=== PATIENT | female | born 1935 | race Caucasian/White ===

== ENCOUNTER 2016-07-06 12:39 | Inpatient (IN) | payer MEDICARE, OTHER ==
[~2016-07-06] VITALS: Ht 165.1 cm; Wt 65.0 kg
[2016-07-06 12:58] VITALS: BP 155/119; PULSE 63; TEMP 97.8
[2016-07-06 17:37] VITALS: BP 152/70; PULSE 77; TEMP 98
[2016-07-06] MEDS ORDERED: ASPIRIN 81M81 MG/TA2 PO (18:24)
[2016-07-06] MEDS ORDERED: LIPITOR 40MG TA40 MG PO (18:27)
[2016-07-06] MEDS ORDERED: COREG 6.256.25 MG/TA PO (18:29)
[2016-07-06] MEDS ORDERED: CELEBREX 200MG200 MG PO (18:30)
[2016-07-06] MEDS ORDERED: HYGROTON 2525 MG/TAB PO (18:31)
[2016-07-06] MEDS ORDERED: KLONOPIN WAFER0.5 MG PO (18:32)
[2016-07-06] MEDS ORDERED: PLAVIX 75MG TAB75 MG PO (18:32)
[2016-07-06] MEDS ORDERED: PRINIVIL20 MG PO (18:33)
[2016-07-06] MEDS ORDERED: PRIL40 PO (18:34)
[2016-07-07 03:50] VITALS: BP 129/74; PULSE 62; TEMP 97.6
[2016-07-07 15:49] VITALS: BP 104/60; PULSE 66; TEMP 98.6
[2016-07-08 04:50] VITALS: BP 130/67; PULSE 70; TEMP 97.7
[2016-07-08 17:37] VITALS: BP 99/52; PULSE 66; TEMP 98.5
[2016-07-09 04:43] VITALS: BP 127/53; PULSE 71; TEMP 97.6
[2016-07-09 18:03] VITALS: BP 125/60; PULSE 66; TEMP 98.1
[2016-07-10 04:10] VITALS: BP 146/88; PULSE 88; TEMP 98.5
[2016-07-10 07:10] VITALS: BP 122/66; PULSE 64
[2016-07-10 16:31] VITALS: BP 142/86; PULSE 65; TEMP 99
[2016-07-11 05:07] VITALS: BP 106/51; PULSE 69; TEMP 98.4
[2016-07-11 17:02] VITALS: BP 145/61; PULSE 73; TEMP 98.4
[2016-07-11 17:15] VITALS: BP 145/61; PULSE 68
[2016-07-12 03:27] VITALS: BP 132/60; PULSE 61; TEMP 98.3
[2016-07-12 16:30] VITALS: BP 97/58; PULSE 63; TEMP 99.1
[2016-07-13 04:32] VITALS: BP 129/66; PULSE 63; TEMP 98.3
[2016-07-13 17:51] VITALS: BP 103/51; PULSE 67; TEMP 99.1
[2016-07-14 04:17] VITALS: BP 102/52; PULSE 65; TEMP 98.3
[2016-07-14 16:51] VITALS: BP 111/58; PULSE 68; TEMP 98.7
[2016-07-14 23:30] VITALS: BP 130/60
[2016-07-15 04:33] VITALS: BP 127/46; PULSE 63; TEMP 97.8
[2016-07-15 16:20] VITALS: BP 150/101; PULSE 72; TEMP 98.1
[2016-07-15 20:45] VITALS: BP 105/45; PULSE 61
[2016-07-16 04:25] VITALS: BP 126/58; PULSE 56; TEMP 98
[2016-07-16 15:59] VITALS: BP 125/61; PULSE 61; TEMP 97.8
[2016-07-17 06:30] VITALS: BP 105/77; PULSE 63; TEMP 97.7
[2016-07-17 17:01] VITALS: BP 127/61; PULSE 65; TEMP 98
[2016-07-18 04:48] VITALS: BP 140/55; PULSE 69; TEMP 97.7
== END 2016-07-18 14:38 | disposition home health service (06) | DRG 57 ==
DX: I69.354 Hemiplegia and hemiparesis following cerebral infarction affecting left non-dominant side (principal); I50.32 Chronic diastolic (congestive) heart failure; Z66 Do not resuscitate; I69.392 Facial weakness following cerebral infarction; I69.321 Dysphasia following cerebral infarction; I10 Essential (primary) hypertension; Z85.3 Personal history of malignant neoplasm of breast
CPT/HCPCS: 99222-AI; 99232-AI; 99239; J1644

== ENCOUNTER 2016-07-25 13:33 | Inpatient (IN) | payer MEDICARE, OTHER ==
[~2016-07-25] VITALS: Ht 165.1 cm; Wt 64.1 kg
[~2016-07-25 13:33] MED LIST: ASPIRIN 81M81 MG/TA2 PO; CELEBREX 200MG200 MG PO; COREG 6.256.25 MG/TA PO; HYGROTON 2525 MG/TAB PO; KLONOPIN WAFER0.5 MG PO; LIPITOR 40MG TA40 MG PO; PLAVIX 75MG TAB75 MG PO; PRIL40 PO; PRINIVIL20 MG PO
[2016-07-25 14:43] LABS: BASO % 0.2 % (0.0-2.0); EOS # 0.1 (0.0-0.7); EOS % 0.5 % (0-4.0); GRAN # 13.3 (1.4-6.5); GRAN % 89.3 % (42.2-75.2); LYMPH # 0.7 (1.2-3.4); LYMPH % 4.9 % (20.0-51.0); MEAN CELL VOLUME 88 fl (80.0-100.0); MEAN CORPUSCULAR HGB CONC 32 g/dl (33.0-37.0); MEAN PLATELET VOLUME 11.5 fl (7.4-10.4); MONO # 0.6 (0.1-0.6); MONO % 4.2 % (1.7-9.3); PLATELET COUNT 275 K/mm3 (130-400); RED BLOOD COUNT 4.06 M/mm3 (4.10-5.30); WHITE BLOOD COUNT 14.9 K/mm3 (4.8-10.8)
[2016-07-25 14:44] LABS: HEMATOCRIT 35.6 % (37.0-47.0); HEMOGLOBIN 11.5 g/dl (12.5-16.0); MEAN CORPUSCULAR HEMOGLOBIN 28 pg (27.0-31.0)
[2016-07-25] MEDS ORDERED: CATAPRES 0.1MG0.1 MG PO (14:47)
[2016-07-25] MEDS ORDERED: APRESOLINE 25MG25 MG PO (14:53)
[2016-07-25 14:54] LABS: C-REACTIVE PROTEIN < 0.5 mg/dL (0.0-0.9)
[2016-07-25] MEDS ORDERED: LEXAPRO 10MG10 MG PO (14:54)
[2016-07-25 14:59] LABS: TROPONIN-I < 0.012 ng/mL (0.000-0.034)
[2016-07-25 15:16] LABS: ADJUSTED CALCIUM 9.9 mg/dL (8.4-10.2); ALANINE AMINOTRANSFERASE 33 U/L (9-52); ALBUMIN 3.6 gm/dL (3.5-5.0); ALKALINE PHOSPHATASE 66 U/L (50-136); ANION GAP 14 mmol/L (7-16); BILIRUBIN,TOTAL 0.9 mg/dL (0.0-1.0); BLOOD UREA NITROGEN 44 mg/dL (7-17); CALCIUM 9.6 mg/dL (8.4-10.2); CARBON DIOXIDE 22 mmol/L (22-30); CHLORIDE 102 mmol/L (98-107); CREATININE, serum 1.43 mg/dL (0.52-1.25); GLUCOSE 102 mg/dL (74-106); POTASSIUM 4.3 mmol/L (3.4-5.0); SODIUM 138 mmol/L (137-145)
[2016-07-25 16:49] LABS: INFLUENZA B NEGATIVE
[2016-07-25 17:02] LABS: PH 5 (5-8); SQUAMOUS EPITHELIAL 0-2 /hpf; URINE APPEARANCE Clear; URINE BACTERIA Rare /hpf; URINE BILIRUBIN Negative (NEGATIVE); URINE BLOOD Negative (NEGATIVE); URINE COLOR Amber; URINE GLUCOSE Negative (NEGATIVE); URINE KETONE Negative (NEGATIVE); URINE RBC 0-2 /hpf; URINE UROBILINOGEN Negative (NEGATIVE); URINE WBC None Seen /hpf
[2016-07-25 18:39] VITALS: BP 116/59; PULSE 59; TEMP 97.8
[2016-07-25 23:55] VITALS: BP 130/56; PULSE 61; TEMP 98.1
[2016-07-26 03:30] VITALS: BP 151/64; BP 151/645; PULSE 97; TEMP 97.2
[2016-07-26 08:33] VITALS: BP 109/60; PULSE 71; TEMP 98.2
[2016-07-26] MEDS ORDERED: TYLENOL 325MG325 MG PO (11:21)
[2016-07-26] MEDS ORDERED: KLONOPIN 0.5MG0.5 MG (11:22)
[2016-07-26 11:56] LABS: BASO % 0.1 % (0.0-2.0); EOS % 0.3 % (0-4.0); GRAN # 8.8 (1.4-6.5); GRAN % 84.7 % (42.2-75.2); HEMATOCRIT 34.2 % (37.0-47.0); HEMOGLOBIN 10.9 g/dl (12.5-16.0); LYMPH # 0.5 (1.2-3.4); LYMPH % 4.8 % (20.0-51.0); MEAN CELL VOLUME 88 fl (80.0-100.0); MEAN CORPUSCULAR HEMOGLOBIN 28 pg (27.0-31.0); MEAN CORPUSCULAR HGB CONC 32 g/dl (33.0-37.0); MEAN PLATELET VOLUME 11.6 fl (7.4-10.4); MONO % 9.5 % (1.7-9.3); PLATELET COUNT 250 K/mm3 (130-400); RED BLOOD COUNT 3.89 M/mm3 (4.10-5.30); REDCELL DISTRIBUTION WIDTH-CV 16.1 % (11.5-14.5); WHITE BLOOD COUNT 10.4 K/mm3 (4.8-10.8)
[2016-07-26 12:11] LABS: CALCIUM 8.7 mg/dL (8.4-10.2); CREATININE, serum 0.95 mg/dL (0.52-1.25); MAGNESIUM 1.7 mg/dL (1.6-2.3); POTASSIUM 3.3 mmol/L (3.4-5.0)
[2016-07-26 12:25] VITALS: BP 128/61; PULSE 60; TEMP 98.8
[2016-07-26 16:23] VITALS: BP 120/71; PULSE 68; TEMP 99.6
[2016-07-26 19:37] VITALS: BP 132/62; PULSE 66; TEMP 97.9
[2016-07-26 23:58] VITALS: BP 111/50; PULSE 76; TEMP 98.7
[2016-07-27 03:29] VITALS: BP 90/76; PULSE 76; TEMP 98.9
[2016-07-27 08:09] VITALS: BP 146/75; PULSE 67; TEMP 97.7
[2016-07-27 12:31] VITALS: BP 154/72; PULSE 64; TEMP 98.8
[2016-07-27 15:34] VITALS: BP 141/49; PULSE 63; TEMP 98
[2016-07-27 20:20] VITALS: BP 157/70; PULSE 65; TEMP 97.8
[2016-07-28 00:42] VITALS: BP 151/84; PULSE 69; TEMP 97.8
[2016-07-28 04:31] VITALS: BP 147/58; PULSE 53; TEMP 97.2
[2016-07-28 07:41] VITALS: BP 156/78; PULSE 56; TEMP 98.8
[2016-07-28] MEDS ORDERED: IMODIUM 2MG CAPS2 MG PO (11:11)
[2016-07-28] MEDS ORDERED: ZOFRAN 4MG T4 MG/TAB PO (11:14)
[2016-07-28] MEDS ORDERED: CIPRO 500MG TA500 MG PO (11:16)
[2016-07-28 11:28] VITALS: BP 160/61; PULSE 69; TEMP 98.1
[2016-07-28] MEDS ORDERED: COREG 3.123.125 MG/T PO (11:36)
[2016-07-28 11:50] VITALS: BP 160/61; PULSE 69; TEMP 98.1
== END 2016-07-28 12:50 | DRG 641 ==
LOC: COL.ER 13:33 → MEDICAL 16:09
PROVIDERS: Family Medicine; Internal Medicine
DX: E86.1 Hypovolemia (principal); I69.151 Hemiplegia and hemiparesis following nontraumatic intracerebral hemorrhage affecting right dominant side; N17.9 Acute kidney failure, unspecified; I50.32 Chronic diastolic (congestive) heart failure; I11.0 Hypertensive heart disease with heart failure; R55 Syncope and collapse; R00.1 Bradycardia, unspecified; E87.6 Hypokalemia; T46.5X5A Adverse effect of other antihypertensive drugs, initial encounter; A08.4 Viral intestinal infection, unspecified; Z85.3 Personal history of malignant neoplasm of breast; Z88.0 Allergy status to penicillin; Z68.27 Body mass index [BMI] 27.0-27.9, adult
CPT/HCPCS: 99223-AI; 99232-AI; 99233-AI; 99239; J2405; J3480; J7030

== ENCOUNTER → 2016-08-01 | Outpatient (REF) ==
[~2016-08-01] MED LIST changes: +APRESOLINE 25MG25 MG PO; +CATAPRES 0.1MG0.1 MG PO; +CIPRO 500MG TA500 MG PO; +COREG 3.123.125 MG/T PO; +IMODIUM 2MG CAPS2 MG PO; +KLONOPIN 0.5MG0.5 MG; +LEXAPRO 10MG10 MG PO; +TYLENOL 325MG325 MG PO; +ZOFRAN 4MG T4 MG/TAB PO
[2016-08-01 14:42] LABS: CALCIUM 9.3 mg/dL (8.4-10.2); CREATININE, serum 0.76 mg/dL (0.52-1.25); POTASSIUM 3.8 mmol/L (3.4-5.0)
== END ==
LOC: ZLAB.STJ 14:19
PROVIDERS: Internal Medicine
DX: Z01.89 Encounter for other specified special examinations (principal)

== ENCOUNTER 2017-10-16 08:22 | Inpatient (IN) | payer MEDICARE ==
[~2017-10-16] VITALS: Ht 165.1 cm; Wt 73.1 kg
[2017-10-16] VITALS (12 sets, daily range): BP systolic 103–158; BP diastolic 53–94; PULSE 55–86; TEMP 98–98.9
[2017-10-16 10:40] LABS: BASO # 0.1 (0.0-0.2); EOS # 0.4 (0.0-0.7); EOS % 7.6 % (0-4.0); GRAN # 3.6 (1.4-6.5); GRAN % 69.4 % (42.2-75.2); HEMOGLOBIN 11.1 g/dl (12.5-16.0); LYMPH # 0.6 (1.2-3.4); LYMPH % 10.9 % (20.0-51.0); MEAN CELL VOLUME 94 fl (80.0-100.0); MEAN CORPUSCULAR HEMOGLOBIN 30 pg (27.0-31.0); MEAN CORPUSCULAR HGB CONC 32 g/dl (33.0-37.0); MEAN PLATELET VOLUME 10.9 fl (7.4-10.4); MONO # 0.6 (0.1-0.6); MONO % 10.9 % (1.7-9.3); PLATELET COUNT 207 K/mm3 (130-400); RED BLOOD COUNT 3.65 M/mm3 (4.10-5.30); REDCELL DISTRIBUTION WIDTH-CV 13.9 % (11.5-14.5)
[2017-10-16 10:42] LABS: PROTHROMBIN TIME 11.8 SECONDS (9.7-12.8)
[2017-10-16 10:43] LABS: HEMATOCRIT 34.4 % (37.0-47.0)
[2017-10-16 10:49] LABS: ALBUMIN 2.8 gm/dL (3.5-5.0); BILIRUBIN,TOTAL 0.7 mg/dL (0.0-1.0); CALCIUM 8.1 mg/dL (8.4-10.2); CREATININE, serum 0.89 mg/dL (0.52-1.25); MAGNESIUM 1.6 mg/dL (1.6-2.3); POTASSIUM 3.6 mmol/L (3.4-5.0); TOTAL PROTEIN 5.2 gm/dL (6.4-8.2)
[2017-10-16] MEDS ORDERED: COZAAR 50MG50 MG/TAB PO (10:58)
[2017-10-16] MEDS ORDERED: CATAPRES-TTS 20.2 M1 (10:59)
[2017-10-16] MEDS ORDERED: ATIVAN 0.50.5 MG/TAB PO (11:00)
[2017-10-16 11:04] LABS: TROPONIN-I 1.17 ng/mL (0.000-0.034)
[2017-10-17] VITALS (9 sets, daily range): BP systolic 109–149; BP diastolic 52–89; PULSE 51–85; TEMP 98.1–99
[2017-10-17 06:35] LABS: BASO # 0.1 (0.0-0.2); BASO % 0.9 % (0.0-2.0); EOS # 0.3 (0.0-0.7); EOS % 5.7 % (0-4.0); GRAN # 4.1 (1.4-6.5); GRAN % 71.2 % (42.2-75.2); HEMOGLOBIN 11.4 g/dl (12.5-16.0); LYMPH # 0.6 (1.2-3.4); LYMPH % 10.8 % (20.0-51.0); MEAN CELL VOLUME 95 fl (80.0-100.0); MEAN CORPUSCULAR HEMOGLOBIN 31 pg (27.0-31.0); MEAN CORPUSCULAR HGB CONC 32 g/dl (33.0-37.0); MEAN PLATELET VOLUME 11.5 fl (7.4-10.4); MONO # 0.6 (0.1-0.6); MONO % 11.1 % (1.7-9.3); PLATELET COUNT 213 K/mm3 (130-400); RED BLOOD COUNT 3.73 M/mm3 (4.10-5.30)
[2017-10-17 06:46] LABS: HEMATOCRIT 35.4 % (37.0-47.0)
[2017-10-17 06:48] LABS: ALBUMIN 2.7 gm/dL (3.5-5.0); BILIRUBIN,TOTAL 0.8 mg/dL (0.0-1.0); CALCIUM 8.1 mg/dL (8.4-10.2); CHOLESTEROL RISK RATIO 2.3; CREATININE, serum 0.75 mg/dL (0.52-1.25); MAGNESIUM 1.5 mg/dL (1.6-2.3); POTASSIUM 3.4 mmol/L (3.4-5.0); TOTAL PROTEIN 5.2 gm/dL (6.4-8.2)
[2017-10-17 14:45] LABS: COLLECTION METHOD CLEAN CATCH
[2017-10-17 14:56] LABS: MUCOUS Present /lpf; PH 5 (5-8); SQUAMOUS EPITHELIAL 0-2 /hpf; URINE APPEARANCE Clear; URINE BACTERIA None Seen /hpf; URINE BILIRUBIN Negative (NEGATIVE); URINE BLOOD Negative (NEGATIVE); URINE COLOR Yellow; URINE GLUCOSE Negative (NEGATIVE); URINE KETONE Trace (NEGATIVE); URINE LEUKOCYTE ESTERASE Negative (NEGATIVE); URINE NITRATE Negative (NEGATIVE); URINE PROTEIN(semi-quant) Negative (NEGATIVE); URINE RBC 0-2 /hpf; URINE UROBILINOGEN Negative (NEGATIVE)
[2017-10-18] VITALS (7 sets, daily range): BP systolic 130–154; BP diastolic 50–81; PULSE 67–78; TEMP 97.8–98.8
[2017-10-18 08:03] LABS: CALCIUM 8.5 mg/dL (8.4-10.2); CREATININE, serum 0.87 mg/dL (0.52-1.25); MAGNESIUM 1.8 mg/dL (1.6-2.3); POTASSIUM 3.2 mmol/L (3.4-5.0)
[2017-10-19 04:00] VITALS: BP 148/80; PULSE 73; TEMP 97.8
[2017-10-19 07:47] LABS: CALCIUM 8.7 mg/dL (8.4-10.2); CREATININE, serum 0.75 mg/dL (0.52-1.25); MAGNESIUM 1.6 mg/dL (1.6-2.3); POTASSIUM 3.4 mmol/L (3.4-5.0)
[2017-10-19 08:08] VITALS: BP 156/77; PULSE 67; TEMP 98
[2017-10-19] MEDS ORDERED: D-2000 90 MG-201 TAB PO (11:58)
[2017-10-19] MEDS ORDERED: COZAAR100 MG PO (11:58)
[2017-10-19] MEDS ORDERED: COREG 6.256.25 MG/TA PO (11:58)
[2017-10-19 12:09] VITALS: BP 121/74; PULSE 70; TEMP 97.4
[2017-10-19 13:16] VITALS: BP 121/74; PULSE 70; TEMP 97.4
== END 2017-10-19 13:30 | DRG 281 ==
LOC: MEDICAL 08:22
PROVIDERS: Internal Medicine Cardiovascular Disease; Nurse Practitioner Family
PROC: B2111ZZ Fluoroscopy of Multiple Coronary Arteries using Low Osmolar Contrast (ICD-10-PCS; principal; 2017-10-16)
PROC: B2151ZZ Fluoroscopy of Left Heart using Low Osmolar Contrast (ICD-10-PCS; 2017-10-16)
PROC: 4A023N7 Measurement of Cardiac Sampling and Pressure, Left Heart, Percutaneous Approach (ICD-10-PCS; 2017-10-16)
PROC: B41FZZZ Fluoroscopy of Right Lower Extremity Arteries (ICD-10-PCS; 2017-10-16)
DX: I11.0 Hypertensive heart disease with heart failure (principal); I21.A1 Myocardial infarction type 2; N13.1 Hydronephrosis with ureteral stricture, not elsewhere classified; I51.81 Takotsubo syndrome; I50.32 Chronic diastolic (congestive) heart failure; Z86.73 Personal history of transient ischemic attack (TIA), and cerebral infarction without residual deficits; Z79.01 Long term (current) use of anticoagulants; E83.42 Hypomagnesemia; E87.6 Hypokalemia
CPT/HCPCS: 99223-AI; 99233-AI; 99239; C1760; C1894; J0360; J1650; J2250; J3010; J3475; J7030; J7040